=== PATIENT | male | born 1975 | race Caucasian/White ===

== ENCOUNTER 2020-03-12 10:35 | Outpatient (CLI) | payer BC, SELFPAY ==
[2020-03-13 14:19] LABS: SARS-CoV-2 RNA PCR Positive
== END 2020-03-12 10:36 | disposition home or self-care (01) ==
PROVIDERS: PCP Internal Medicine; Visit Provider Internal Medicine
DX: U07.1 COVID-19 (principal)
CPT/HCPCS: 87635; C9803; U0003

== ENCOUNTER 2020-05-01 08:02 | Outpatient (CLI) | payer BC, SELFPAY ==
[2020-05-01 08:14] LABS: Basophils Absolute Auto 0.03 K/mm3 (0.00-0.10); Basophils Percent Auto 0.6 % (0.0-1.0); Eosinophils Percent Auto 1.9 % (1.0-6.0); Hematocrit 44.2 % (40.0-54.0); Hemoglobin 14.8 g/dL (14.0-18.0); Immature Granulocyte Absolute 0.02 K/mm3 (0.00-0.00); Immature Granulocyte Percent A 0.4 % (0.0-0.0); Lymphocytes Absolute Auto 1.79 K/mm3 (1.10-4.50); Lymphocytes Percent Auto 34.6 % (18.0-42.0); Mean Corpuscular HGB Conc 33.5 g/dL (32.0-36.0); Mean Corpuscular Hemoglobin 28.9 pg (27.0-31.0); Mean Corpuscular Volume 86.3 fL (78.0-102.0); Mean Platelet Volume 8.6 fl (8.7-11.0); Monocytes Absolute Auto 0.47 K/mm3 (0.10-0.90); Monocytes Percent Auto 9.1 % (2.0-11.0); Neutrophils Absolute Auto 2.8 K/mm3 (1.7-7.2); Neutrophils Percent Auto 53.4 % (50.0-70.0); Platelet Count Result 233 K/mm3 (150-420); Red Blood Count 5.12 M/mm3 (4.70-6.10); Red Cell Distribution Width 12.4 % (11.6-14.4); White Blood Count 5.2 K/mm3 (4.8-10.8)
[2020-05-01 08:17] LABS: Add Urine Microscopic? NO; Appearance Urine Clear (Clear); Bilirubin Urine Negative (Negative); Blood Urine Negative (Negative); Color Urine Yellow (Yellow); Glucose Urine UA Negative (Negative); Ketones Urine Negative (Negative); Leukocyte Esterase Ur Negative (Negative); Nitrate Urine Negative (Negative); Protein Urine Negative (Negative); Specific Grav Ur >= 1.030 (1.010-1.020); Urobilinogen Urine 0.2 mg/dL (0.2-1.0)
[2020-05-01 09:09] LABS: Alanine Aminotransferase 43 U/L (16-63); Albumin Level 4.2 g/dL (3.4-5.0); Alkaline Phosphatase 49 U/L (46-116); Anion Gap 8 mmol/L (8-16); Aspartate Amino Transferase 38 U/L (15-37); Bilirubin,Total 0.6 mg/dL (0.00-1.00); Blood Urea Nitrogen 20 mg/dL (7-18); Carbon Dioxide 29 mmol/L (21-32); Chloride 106 mmol/L (98-108); Cholesterol 187 mg/dL (0-200); Creatine Kinase 508 U/L (39-308); Estimated Glomerular Filt Rate > 60; Glucose 100 mg/dL (70-99); HDL Direct 55 mg/dL (40-60); LDL Cholesterol Calculated 114 mg/dL (<130); Osmolality Calculated 298 mOsm/kg (285-295); Potassium 4.2 mmol/L (3.5-5.1); Sodium 143 mmol/L (136-145); Triglycerides 92 mg/dL (0-150)
== END 2020-05-01 08:03 | disposition home or self-care (01) ==
LOC: CHSLAB 08:04
PROVIDERS: PCP Internal Medicine; Visit Provider Internal Medicine
DX: Z00.00 Encounter for general adult medical examination without abnormal findings (principal)
CPT/HCPCS: 36415; 80053; 80061; 81003; 82550; 85025

== ENCOUNTER 2020-12-12 07:20 | Outpatient (CLI) | payer BC, SELFPAY ==
[2020-12-12 08:18] LABS: Alanine Aminotransferase 51 U/L (16-63); Albumin Level 4.2 g/dL (3.4-5.0); Alkaline Phosphatase 55 U/L (46-116); Anion Gap 8 mmol/L (8-16); Aspartate Amino Transferase 38 U/L (15-37); Bilirubin,Total 0.4 mg/dL (0.00-1.00); Blood Urea Nitrogen 17 mg/dL (7-18); Carbon Dioxide 31 mmol/L (21-32); Chloride 103 mmol/L (98-108); Creatine Kinase 311 U/L (39-308); Estimated Glomerular Filt Rate > 60; Glucose 98 mg/dL (70-99); Osmolality Calculated 295 mOsm/kg (285-295); Potassium 3.8 mmol/L (3.5-5.1); Sodium 142 mmol/L (136-145); Total Protein 7.3 g/dL (6.4-8.2)
== END 2020-12-12 07:21 | disposition home or self-care (01) ==
LOC: CHSLAB 07:23
PROVIDERS: PCP Internal Medicine; Visit Provider Internal Medicine
DX: R74.8 Abnormal levels of other serum enzymes (principal); R73.01 Impaired fasting glucose
CPT/HCPCS: 36415; 80053; 82550

== ENCOUNTER 2022-02-13 11:42 | Outpatient (CLI) | payer BC, SELFPAY ==
[2022-02-13 12:48] LABS: Influenza A QL RT-PCR Negative (Negative); Influenza B QL RT-PCR Negative (Negative); SARS-CoV-2 RNA PCR Negative (Negative)
== END 2022-02-13 11:43 | disposition home or self-care (01) ==
LOC: CHSLAB 11:45
PROVIDERS: PCP Internal Medicine; Visit Provider Nurse Practitioner Family
DX: J06.9 Acute upper respiratory infection, unspecified (principal); J02.9 Acute pharyngitis, unspecified; Z20.822 Contact with and (suspected) exposure to COVID-19
CPT/HCPCS: 87081; 87502; 87880; C9803; U0003; U0005

== ENCOUNTER 2022-12-07 13:42 | Outpatient (CLI) | payer BC, SELFPAY ==
[2022-12-07 14:00] LABS: Basophils Absolute Auto 0.05 K/mm3 (0.00-0.10); Basophils Percent Auto 0.8 % (0.0-1.0); Eosinophils Absolute Auto 0.14 K/mm3 (0.02-0.50); Eosinophils Percent Auto 2.2 % (1.0-6.0); Hematocrit 42.1 % (40.0-54.0); Hemoglobin 14.1 g/dL (14.0-18.0); Immature Granulocyte Absolute 0.01 K/mm3 (0.00-0.00); Immature Granulocyte Percent A 0.2 % (0.0-0.0); Lymphocytes Absolute Auto 2.04 K/mm3 (1.10-4.50); Lymphocytes Percent Auto 32.5 % (18.0-42.0); Mean Corpuscular HGB Conc 33.5 g/dL (32.0-36.0); Mean Corpuscular Hemoglobin 28.5 pg (27.0-31.0); Mean Corpuscular Volume 85.1 fL (78.0-102.0); Mean Platelet Volume 8.9 fl (8.7-11.0); Neutrophils Absolute Auto 3.5 K/mm3 (1.7-7.2); Neutrophils Percent Auto 56.3 % (50.0-70.0); Platelet Count Result 227 K/mm3 (150-420); Red Blood Count 4.95 M/mm3 (4.70-6.10); Red Cell Distribution Width 12.1 % (11.6-14.4); White Blood Count 6.3 K/mm3 (4.8-10.8)
[2022-12-07 14:01] LABS: Appearance Urine Clear (Clear); Bilirubin Urine Negative (Negative); Blood Urine Negative (Negative); Color Urine Yellow (Yellow); Glucose Urine UA Negative (Negative); Ketones Urine Negative (Negative); Leukocyte Esterase Ur Negative LEU/UL (Negative); Nitrate Urine Negative (Negative); Protein Urine Negative (Negative); Specific Grav Ur 1.025 (1.010-1.020); Urobilinogen Urine 0.2 mg/dL (0.2-1.0); pH Urine 5.5 (5.0-8.0)
[2022-12-07 14:05] LABS: Add Urine Microscopic? NO
[2022-12-07 14:11] LABS: Hemoglobin A1C 5.8 % (<5.7)
[2022-12-07 14:43] LABS: Alanine Aminotransferase 82 U/L (16-63); Albumin Level 4.4 g/dL (3.4-5.0); Alkaline Phosphatase 58 U/L (46-116); Anion Gap 9 mmol/L (8-16); Aspartate Amino Transferase 63 U/L (15-37); Bilirubin,Total 0.7 mg/dL (0.00-1.00); Blood Urea Nitrogen 16 mg/dL (7-18); Calcium 8.8 mg/dL (8.5-10.1); Carbon Dioxide 30 mmol/L (21-32); Chloride 103 mmol/L (98-108); Cholesterol 173 mg/dL (0-200); Creatine Kinase 848 U/L (39-308); Estimated Glomerular Filt Rate 60; Free T3 2.94 pg/mL (2.18-3.98); Free T4 Free Thyroxine 0.98 ng/dL (0.76-1.46); Glucose 85 mg/dL (70-99); HDL Direct 44 mg/dL (40-60); LDL Cholesterol Calculated 101 mg/dL (<130); Osmolality Calculated 294 mOsm/kg (285-295); Potassium 3.7 mmol/L (3.5-5.1); Sodium 142 mmol/L (136-145); Thyroid Stimulating Hormone 1.71 uIU/mL (0.36-3.74); Total Protein 7.6 g/dL (6.4-8.2); Triglycerides 140 mg/dL (0-150)
== END 2022-12-07 13:43 | disposition home or self-care (01) ==
LOC: CHSLAB 13:44
PROVIDERS: PCP Internal Medicine; Visit Provider Internal Medicine
DX: E78.2 Mixed hyperlipidemia (principal); R73.01 Impaired fasting glucose; N39.0 Urinary tract infection, site not specified; I10 Essential (primary) hypertension; R53.83 Other fatigue
CPT/HCPCS: 36415; 80053; 80061; 81003; 82550; 83036; 84439; 84443; 84481; 85025

== ENCOUNTER 2023-05-03 13:55 | Outpatient (CLI) | payer BC, SELFPAY ==
[2023-05-03 14:40] LABS: Anion Gap 8 mmol/L (8-16); Blood Urea Nitrogen 19 mg/dL (7-18); Calcium 9.2 mg/dL (8.5-10.1); Carbon Dioxide 30 mmol/L (21-32); Chloride 103 mmol/L (98-108); Estimated Glomerular Filt Rate > 60; Glucose 84 mg/dL (70-99); Osmolality Calculated 293 mOsm/kg (285-295); Potassium 3.6 mmol/L (3.5-5.1); Sodium 141 mmol/L (136-145)
== END 2023-05-03 13:56 | disposition home or self-care (01) ==
PROVIDERS: PCP Internal Medicine; Visit Provider Internal Medicine
DX: I10 Essential (primary) hypertension (principal)
CPT/HCPCS: 36415; 80048

== ENCOUNTER 2023-08-16 12:00 | Emergency (ER) | payer BC, SELFPAY ==
--- NOTE | ~2023-08-16 | XR_ITS ---
EXAMINATION: XR forearm LT 2V DATE: 08/16/2023 12:29 INDICATION: Left forearm pain and deformity post fall TECHNIQUE: AP an lateral views of the left forearm were obtained. COMPARISON: none FINDINGS: Mildly comminuted mid diaphyseal fracture of the left ulna with 4 mm ulnar displacement and 90 degree radial angulation. There is minimal displacement of a small volar sided butterfly fragment. 4 mm and volar displacement of a transverse fracture of the proximal diaphysis of the left radius. Normal ali gnment and joint space at the left elbow, wrist and visualized hand. No elbow joint effusion. IMPRESSION: 1. Mildly displaced diaphyseal fractures of the left radius and ulna. Reviewed, dictated and finalized at location A. [facility]
[2023-08-16 12:00] VITALS: BP 91/53; PULSE 60; RESP 18; TEMP 35.6; O2SAT 100
--- NOTE | 2023-08-16 12:10 | ED.UPPEXIN ---
HPI - Extremity Injury (Upper) General Chief Complaint: Extremity Injury, Upper Stated Complaint: left arm pain Time Seen by Provider: 08/16/23 12:08 Source: patient Mode of arrival: ambulatory Limitations: no limitations History of Present Illness HPI narrative: 48 year old male arrives to the Emergency Department complaining of left forearm pain. Patient states he slipped on ice just prior to arrival and landed on left arm. Denies striking head, loss of consciousness, head or neck pain. Denies chest, back, abdominal or other pain. MD complaint: injury to: left and forearm Onset (ago): minute(s) Other injuries: none Handedness: right Place: home Severity: moderate Severity scale (1-10): 10 Relieving factors: none Exacerbating factors: movement of extremity Context: fall Associated symptoms: denies other symptoms Treatments prior to arrival: cold therapy Related Data Home Medications Medication Instructions Recorded Confirmed atorvastatin 10 mg tablet 10 mg PO DAILY 08/16/23 08/16/23 citalopram 20 mg tablet 20 mg PO DAILY 08/16/23 08/16/23 fenofibrate micronized 67 mg 67 mg PO DAILY 08/16/23 08/16/23 capsule losartan 100 1 tablet PO DAILY 08/16/23 08/16/23 mg-hydrochlorothiazide 25 mg tablet Allergies Allergy/AdvReac Type Severity Reaction Status Date / Time No Known Allergies Allergy Mild Verified 08/16/23 12:07 Review of Systems Review of Systems: All systems reviewed & are unremarkable except as noted in HPI and below Constitutional: Constitutional: Reports as per HPI and Reports no additional constitutional complaints Eyes: Eyes: Reports as per HPI and Reports no additional eye complaints ENT: Reports system reviewed and no additional complaints, except as documented Cardiovascular: Cardiovascular: Reports as per HPI and Reports no additional cardiovascular complaints Respiratory: Respiratory: Reports as per HPI and Reports no additional respiratory complaints Gastrointestinal: Gastrointestinal: Reports as per HPI and Reports no additional gastrointestinal complaints Musculoskeletal: Musculoskeletal: Reports no additional musculoskeletal complaints Comments: Left forearm pain Neurologic: Reports system reviewed and no additional complaints, except as documented and Denies numbness Psychiatric: Psychiatric: Reports no additional psychiatric complaints Endocrine: Endocrine: Reports no additional endocrine complaints Hematologic/Lymphatic: Hematologic/Lymphatic: Reports no additional hematologic/lymphatic complaints Allergic/Immunologic: Allergic/Immunologic: Reports no additional allergic/immunologic complaints Exam Const: General: healthy appearing; No no acute distress Nutritional Appearance: well nourished Orientation/consciousness: patient oriented x3 Limitations: no limitations Other: mild distress HENMT: Head: normal to inspection Ears: external ears normal Face/Nose/Sinus: Normal external nose present Face and sinus: normal facial exam Mouth: Yes Normal oral and palatal mucosa present Teeth and gingiva: dentition normal Other: Non-tender to palpation Eyes: Conjunctivae: conjunctivae normal Pupils: Equal, round and reactive pupils present EOM: EOMs intact bilaterally Direct Ophthalmoscopy: no photophobia Neck: Neck: normal visual inspection Other: Non-tender to palpation Chest: Chest palpation & inspection: normal inspection of the chest and no tenderness Resp: Effort & Inspection: normal respiratory effort and not labored Cardio: Rate: regular rate Rhythm: regular rhythm Other: Peripheral pulses intact GI: Inspection: non-distended GI Palp: Yes Soft to palpation and No Tenderness to palpation present (GI) Back/Spine/Pelvis: Back: no CVA tenderness Skin: General skin exam: normal color Rashes: no rashes Wounds: no wounds Neuro: General: patient oriented x3 Cranial nerves: Yes Nystagmus not present Speech: normal speech O
[2023-08-16] MEDS: HYDROmorphone HCL INJ (*CRX) 2 MG/ML VIAL IM (12:20)
[2023-08-16 13:25] VITALS: BP 114/76; PULSE 54; RESP 18; O2SAT 99
== END 2023-08-16 13:25 | disposition home or self-care (01) ==
PROVIDERS: Emergency Provider Emergency Medicine; PCP Internal Medicine
DX: S52.92XA Unspecified fracture of left forearm, initial encounter for closed fracture (principal); S59.002A Unspecified physeal fracture of lower end of ulna, left arm, initial encounter for closed fracture; Z79.899 Other long term (current) drug therapy; W00.0XXA Fall on same level due to ice and snow, initial encounter
CPT/HCPCS: 29105; 73090; 96372; 99284; A4565; J1170

== ENCOUNTER 2023-10-18 11:00 | Outpatient (RCR) | payer BC, SELFPAY ==
--- NOTE | 2023-10-19 08:34 | BUOTOPEVAL ---
Assessment and note entered by Sana Quezada OT Evaluation Information Assessment Status Evaluation Diagnosis Closed fracture of left radius and ulna, initial encounter Onset 08/16/23 Subjective Information The patient reports no pain at rest at the beginning of therapy session. He stated that he has a follow up with early October. The patient only has pain at ulnar side of wrist reported at worst as 3/10 as quick sharp pain that goes away quickly. Then pain in L shoulder at 6/10 on posterior and top of shoulder when moving arm for daily tasks. The numbness in L forearm is reported as moderate and he stated that it, feels weird. Reported Pain Level Pain Score 0: Self Report Assessment OT Clinical Summary The patient is a 48 year old male who was referred to outpatient OT due to closed fracture of left radius and ulna with open reducation internal fixation to left ulna fracture and proximal radius malunion. The patient previously demonstrated WNL AROM, bleach chlorinator/pinch strength, no pain and no edema of L UE, the patient now demonstrates moderately impaired AROM of L wrist and elbow, significant bleach chlorinator weakness with R UE demonstrating 99 lbs of strength and L UE demonstrating 13 lbs, minimal edema of L hand and forearm and pain during daily tasks making ADLs and work tasks difficult for patient at this time. The patient scored 59 on QuickDASH questionnaire at the time of evaluation demonstrating moderate impairment of function of L UE. The patient requires skilled OT to address AROM, edema management and scar management at this time with progression to strength and mobility of UE at later date. Plan of Care Interventions Therapeutic Exercise,Manual Therapy,Neuro Re- education,Therapeutic Activities,Hot Pack/Cold Pack,Electrical Stimulation,Self-Care/Home Management,Prosthetic Training,Ultrasound OT Services Indicated Yes Treatment Frequency and 2x/week for 10 visits. Duration These treatments will address the objective and functional deficits as defined above. The patient will be advanced safely and appropriately in order for the patient to progress towards his/her prior level of function. Additional exercises will be introduced and as well as a comprehensive home exercise program upon discharge, if needed, ?to ensure carryover of functional gains achieved in the clinic. This treatment plan has been reviewed and agreement upon by the patient.
--- NOTE | 2023-11-19 14:15 | OPREHPOC ---
Outpatient Therapy Plan of Care This is a Multidisciplinary Plan of Care that may contain components documented by all disciplines (PT, OT, and ST.) OT Problem 1 OT Problem #1 Knowledge Deficit OT Goal 1 Goal The patient will demonstrate 100% knowledge and understanding of UE HEP in order to improve function. Target Visit 10 Progress Met OT Problem 2 OT Problem #2 Edema OT Goal 1 Goal The patient will demonstrate decreased edema and softening of scar tissue by demonstrating L UE middle digit proximal phalanx at 7 cm, DPC at 19 cm and elbow (4 inches distal to olecranon process ) at 30.5 cm in order to improve ROM for function of arm during ADLs. Target Visit 20 Progress Partially Met Comment PROGRESSING; CONTINUE L UE: Middle digit proximal phalanx: 7.5 cm DPC: 19 4 inch distal elbow: 29 cm R UE: Middle digit proximal phalanx: 7 cm DPC: 18 4 inches distal to elbow: 30.5 cm OT Problem 3 OT Problem #3 Pain OT Goal 1 Goal The patient will demonstrate decreased pain in L UE by reporting 0/10 pain in L wrist during AROM for ability to perform work tasks without discomfort. Target Visit 20 Progress Partially Met Comment Progressing; Reports 2/10 pain with AROM; CONTINUE OT Problem 4 OT Problem #4 Impaired Range of Motion OT Goal 1 Goal The patient will demonstrate 0 degrees L elbow extension, >40 degrees L wrist flexion, >50 degrees L wrist extension in order to increase function of L UE needed to perform grooming tasks. Target Visit 20 Progress Partially Met Comment PROGRESSING; CONTINUE L elbow flexion: 135 L elbow extension: 0 L wrist flexion: 38
--- NOTE | 2023-11-19 14:15 | OTOPREEVAL ---
Assessment and note entered by Estela Li, OT Evaluation Information Assessment Status Re-evaluation Diagnosis Closed fracture of left radius and ulna, initial encounter Onset 08/16/23 Subjective Information Client reports increased participation in leisure activities and has less difficulty performing self care and home management tasks. He stated, I went to [employer] with my friends and even though I didn't play, I swung a club and it did not hurt at all. . Client did state he wants to work more on his stroke coordinator strength in future sessions Reported Pain Level Pain Score 0: Self Report Assessment OT Clinical Summary Client pleasant throughout OT session and reported no pain prior to treatment. Client does report 2/ 10 pain in left wrist with AROM and stretching, but reports pain subsides quickly after. Client demonstrated good tolerance with therapeutic treatment completed this date and was able to increase reps with no adverse reactions. He demonstrated understanding of HEP requiring no cues or assistance this date. Client has made great improvement since attending skilled OT with his active left elbow extension increasing from 15 degrees of flexion to 0 degrees. His left wrist also made improvement towards ROM goals with client increasing wrist flexion from 26 degrees to 38 degrees and wrist extension from 32 degrees to 40 degrees. Less edema measured around DPC decreasing from 20 cm to 19 cm, and distal elbow from 31 cm to 29 cm. No change in edema measurement around middle proximal phalanx remaining at 7.5 cm. Client's percentage on the Quick Dash Questionnaire improved from 59% disability to 13.6% indicating increased participation in meaningful and daily tasks. Additional progress shown in left hand strength with client's left stroke coordinator strength improving from 13 lbs. to 35 lbs. and lateral pinch strength improving from .5 lbs. to 6 lbs.. Client has verbalized less difficulty with performing ADLs and IADLs, but would continue to benefit from skilled occupational therapy services to address AROM, strength, and pain. Plan of Care Interventions Therapeutic Exercise,Manual Therapy,Neuro Re- education,Therapeutic Activities,Hot Pack/Cold Pack,Self-Care/Home Management OT Services Indicated Y
--- NOTE | 2023-12-24 12:13 | OTOPDC ---
Assessment and note entered by Sana Quezada, OT Evaluation Information Assessment Status Discharge Reported Pain Level Pain Score 0: Self Report Assessment OT Clinical Summary The patient demonstrates significant progress in L UE strength, wrist ROM, art handler strength, pinch strength, and pain symptoms affecting an increase in independence with ADLs and work tasks. He demonstrates no pain at the time of discharged and 100% knowledge and return demonstration for UE HEP. The patient demonstrates increased function with L UE scoring 59% on QuickDash at SOC and 15% at discharge. The patient is discharged with HEP to continue to address art handler and UE strength and maintain progress from skilled OT. Plan of Care OT Services Indicated No
== END 2023-12-24 13:07 | disposition home or self-care (01) ==
LOC: CHSOT 11:00
DX: S52.92XD Unspecified fracture of left forearm, subsequent encounter for closed fracture with routine healing (principal); S52.202D Unspecified fracture of shaft of left ulna, subsequent encounter for closed fracture with routine healing
CPT/HCPCS: 97110; 97140; 97166; 97530

== ENCOUNTER 2024-09-15 07:29 | Outpatient (CLI) | payer BC, SELFPAY ==
--- NOTE | ~2024-09-15 | US_ITS ---
US right upper quadrant INDICATION: Elevated liver enzymes PROCEDURE: Realtime right upper abdominal ultrasound. COMPARISON: No prior studies for comparison. FINDINGS: The pancreas is normal without focal mass or pancreatic ductal dilation. Liver echotexture is increased, consistent with fatty infiltration. There is normal directional flow in the portal ve in. Gallbladder is contracted limiting evaluation for stones. Common bile duct measures 3 mm. No sonogr aphic Esparza's sign. IMPRESSION: 1: Fatty infiltration of the liver. Reviewed, dictated and finalized at location B. [facility]
--- OUTSIDE RECORDS SUMMARY | 2024-09-15 07:35 | XMS_ITS | Clinical Summary ---
Author Organization [address] Address [address] [place] [id number] Care Team Providers Care Willow Worker Name Role Phone Joellen Membreno MD Primary Care Provider + [phone] Allergies No known active allergies Medications ibuprofen (ibuprofen) 200 mg tab/cap take 1 tablet by oral route every 6 hours as needed with food 0 0 10/12/19 15 Active Additional Information Patient taking differently:200 mgoral Every 6 hours PRN, pain, headaches, fever, Informant: Self, Reported on 09/21/2023 citalopram (CeleXA) 20 mg tablet Take 1 tablet (20 mg total) by mouth daily. 30 tablet 4 06/04/20 17 Active Additional Information Patient taking differently:20 mg oralEvery morning, Indications: Anxiety with Depression, Informant: Self, Reported on 09/21/2023 atorvastatin (LIPITOR) 10 mg tabletIndications:hy perlipidemia Take 1 tablet (10 mg total) by mouth nightly Active fenofibrate micronized (LOFIBRA) 67 mg capsuleIndications:h ypercholesterolemia, hyperlipidemia Take 1 capsule (67 mg total) by mouth daily before breakfast Active lansoprazole (PREVACID) 15 mg capsuleIndications:T reatment of Non-Bleeding Gastric Disorder Take 1 capsule (15 mg total) by mouth human service specialist before breakfast Active losartan-hydrochloro thiazide (HYZAAR) 100-25 mg per tabletIndications:hy pertension Take 1 tablet by mouth human service specialist before breakfast 08/05/19 24 Active coenzyme Q10 200 mg capsule Take 1 tablet by mouth human service specialist before breakfast Active HYDROcodone-acetamin ophen (NORCO) 5-325 mg per tabletIndications:Pa in Take 1 tablet by mouth every 6 (six) hours as needed for pain for up to 20 doses 20 tablet 09/27/19 24 Active fenofibrate nanocrystallized (TRICOR) 145 mg tablet 12/01/19 24 Active omeprazole (PriLOSEC) 20 mg capsule 12/01/19 24 Active potassium chloride ER 20 mEq CR tablet 12/01/19 24 Active buPROPion XL (WELLBUTRIN XL) 150 mg 24 hr tablet 02/11/20 24 Active Active Problems Problem Noted Date Diagnosed Date Essential hypertension 01/04/2024 Exposure to potentially hazardous substance 12/24 Gastroesophageal reflux disease 01/04/2024 Generalized anxiety disorder 01/04/2024 Hyperlipidemia 01/04/2024 Nicotine dependence 01/04/2024 Sleep apnea 01/04/2024 Fracture of radial shaft wit h ulna, closed, left, initial encounter 09/21/2023 Blood in stool 12/28/2017 Assessment & Plan (12/28/2017 3:13 PM CDT): 8 yrs of intermittent BRBPR asoc with anal pain and itching but no prolapse or swelling. Clinically sounds like roids but sine 42yo and almost due for screening colonoscopy prooposed colonoscopy and IRC if roids are found. He agrees. Anxiety 06/04/2017 Overview (06/04/2017): Patient states he taking this medication for anxiety and it has been working . Patient denies any problems or side affects form this medication. He is currently taking it as prescribed. Patient will continue taking meds as ordered and follow with with new PCP or our office sooner if needed Mass of hand 07/06/2016 Surgical History Surgery Date Site/Laterality Comments HERNIA REPAIR x4 last >10 years ago CYST REMOVAL 07/26/2017 - 07/25/2018 Right right hand FEMUR FRACTURE SURGERY 07/26/1976 - 07/25/1977 Left FRACTURE SURGERY 07/26/2023 - 08/25/2023 Ulna Medical History Medical History Date Comments Gastroesophageal reflux disease Acid Reflux Depression Family History Medical History Relation Name Comments Diabetes Father Anesthesia problems Neg Hx Relation Name Status Comments Father Social History Tobacco Use Types Packs/Day Years Used Date Smoking Tobacco: Former Cigarettes 1 14 0 12/1997 - 12/2011 Smokeless Tobacco: Never Tobacco Cessation:Counseling Given: Not Answered Alcohol Use Standard Drinks/Week Comments Yes 0 (1 standard drink = 0.6 oz pur e alcohol) AUDIT-C Answer Date Recorded Q1: How often do you have a drink containing alc ohol? 2-3 times a week 09/27/2023 Q2: How many drinks containi ng alcohol do you have on a typical day when you are drinking? 1 or 2 09/27/2023 Q3: How often do you have si x or more drinks on one occasion? Never 09/27/2023 Personal Safety Answer Date Recorded Have you ever been in or are you currently in a harmful physical or emotional relationship or is someone making you feel afraid or unsafe? Patient unable to answer 09/27/2023 Sex and Gender Information Value Date Recorded Sex Assigned at Not on file Legal Sex Male 12:50 AM [employer] Gender Identity Not on file Sexual Orientation Not on file Obstetrics History Last Filed Vital Signs Vital Sign Reading Time Taken Comments Blood Pressure 109/66 09/27/2023 4:20 PM [employer] Pulse 57 09/27/2023 4:20 PM [employer] Temperature 36.5 C (97.7 F) 09/27/2023 3:50 PM [employer] Respiratory Rate 17 09/27/2023 4:20 PM [employer] Oxygen Saturation 99% 09/27/2023 4:20 PM [employer] Inhaled Oxygen Concentration - - Weight 108.9 kg (240 lb) 09/21/2023 11:00 AM [employer] Height 177.8 cm (5' 10 ) 09/21/2023 11:00 AM [employer] Body Mass Index 34.44 09/21/2023 11:00 AM [employer] Plan of Treatment Health Maintenance Due Date Last Done Comments Hepatitis C Screening 1975 Prostate Cancer Screening-PSA 1975 Hepatitis B Screening 1991 Regular Well Visit/Exam 18-64 1991 Depression Screening 06/04/2018 06/04/2017 Covid-19 Vaccine ( season) 2024 06/04/2021, 05/13/2021 Influenza Vaccine (#1) 2024 8, 07/09/2007, 07/31/2006, Additional history exists Colon Cancer Screening-Colonoscopy 02/11/2028 02/10/2018, 02/10/2018 DTaP/Tdap/Td Vaccine (2 - Td or Tdap) 01/31/2030 02/01/2020, 04/05/2005, 10/11/1992 Zoster Vaccine Completed 10/29/2023, 05/18/2023 Pneumococcal vaccine <65 Aged Out No longer eligible based on patient's age to complete this topic Medical Devices Implanted Type Area Secretary Specialist Device Identifier Shelf Expiration Date Model / Serial / Lot Synthes Implant Bone Plate Compression Locking 16 Hole Lcp [id number] [id number] - [id number] Implanted:Qty: 1 on 09/27/2023 by Kemal Hill MD at [facility] Plate Radius Synthes I 2031 [id number] 0 S / / [id number] Radius Left: Arm Synthes Lcp 36mm 4 Hole Low Profile Cut To Length Plate Bone Stainless 249.674 - [id number] Implanted:Qty: 1 on 09/27/2023 by Kemal Hill MD at [facility] Left: Arm Synthes I 249.674 / / Synthes 2.4mm 14mm Self Tap Stardrive Cortex T8 Screw Bone 201.764 - [id number] Implanted:Qty: 1 on 09/27/2023 by Kemal Hill MD at [facility] Left: Arm Synthes I 201.764 / / Synthes 2.4mm 16mm Self Tap Stardrive Cortex T8 Screw Bone 201.766 - [id number] Implanted:Qty: 1 on 09/27/2023 by Kemal Hill MD at [facility] Left: Arm Synthes I 201.766 / / Synthes Lcp 67mm 7 Hole Low Profile Cut To Length Plate Bone Stainless 249.683 - [id number] Implanted:Qty: 1 on 09/27/2023 by Kemal Hill MD at [facility] Left: Arm Synthes I 249.683 / / Synthes 2.7mm 5mm 16mm 2.5mm Self Tap St[employer]rive Cortical T8 Screw Bone 202.876 - [id number] Implanted:Qty: 6 on 09/27/2023 by Kemal Hill MD at [facility] Left: Arm Synthes I 202.876 / / Synthes 2.7mm 5mm 20mm 2.5mm Self Tap St[employer]rive Cortical T8 Screw Bone 202.880 - [id number] Implanted:Qty: 2 on 09/27/2023 by Kemal Hill MD at [facility] Left: Arm Synthes I 202.880 / / Synthes 2.7mm 2.1mm 10mm Self Tap Lock Stardrive Thread Head Profile T8 .210 - [id number] Implanted:Qty: 2 on 09/27/2023 by Kemal Hill MD at [facility] Left: Arm Synthes I 202.210 / / Synthes 2.7mm 5mm 18mm 2.5mm Self Tap St[employer]rive Cortical T8 Screw Bone .878 - [id number] Implanted:Qty: 2 on 09/27/2023 by Kemal Hill MD at [facility] Left: Arm Synthes I 202.878 / / Procedures Procedure Name Priority Date/Time Associated Diagnosis Comments COLONOSCOPY 02/10/2018 8:08 AM CDT from Last 3 Months or Most Recently Relevant to Health Maintenance Results * COLONOSCOPY (02/10/2018 8:08 AM CDT) Anatomical Region Laterality Modality Other Narrative Procedure Note Chaz Wong MD - 02/10/2018 8:08 AM CDT [facility] Patient Name: Helder Lawrence Procedure Date: 02/10/2018 8:08 AM Date of : 1975 Admit Type: Outpatient Age: 42 Gender: Male Attending MD: Chaz Wong M.D. Room: [facility] ROOM 1 Note Status: Finalized Procedure: Colonoscopy Indications: Screening for colorectal malignant neoplasm, This is the patient's first colonoscopy Referring MD: Providers: Chaz Wong M.D. Impression: - Internal hemorrhoids that prolapse with straining, but spontaneously regress to the resting position (Grade II) found on digital rectal exam. - The entire examined colon is normal. - No specimens collected. Recommendation: - Discharge patient to home. - Resume previous diet. - Continue present medications. - Repeat colonoscopy in 10 years for screeningpurposes. - Return to primary care physician as previously scheduled. Medicines: Propofol per Anesthesia Complications: No immediate complications. Estimated Blood Loss: Estimated blood loss: none. Procedure: The benefits, risks and alternatives of theprocedure and sedation were discussed and informed consent was obtained. All questions were answered. Please referto the signed informed consent document in the medical record. The scope was passed under direct vision.The Colonoscope [id number] was introducedthrough the anus and advanced to the the cecum, identifiedby appendiceal orifice and ileocecal valve. The colonoscopy was performed without difficulty. The patient tolerated the procedure well. The quality of the bowel preparation was excellent. Findings: The digital rectal exam findings include internal hemorrhoids that prolapse with straining, but spontaneously regress to the resting position (Grade II). The colon (entire examined portion) appeared normal. Electronically signed by Chaz Wong M.D. Chaz Wong M.D. 02/10/2018 8:40:09 AM Number of Addenda: 0 Note Initiated On: 02/10/2018 8:08 AM Procedure Code(s): --- Professional --- G0121, Colorectal cancer screening; colonoscopy on individual not meeting criteria for high risk Diagnosis Code(s): --- Professional --- K64.1, Second degree hemorrhoids Z12.11, Encounter for screening for malignant neoplasm of colon CPT copyright 2017 [employer]. All rights reserved. The codes documented in this report are preliminary and upon pocket machine operator reviewmay be revised to meet current compliance requirements. Recognized by the [employer] [employer] for promoting quality in endoscopy Chaz Wong MD ENDOSCOPY PROCEDURES Final Re sult from Last 3 Months or Most Recently Relevant to Health Maintenance Insurance [facility] FEDERAL Advance Directives For more information, please contact: [phone] * Full Code (Latest Code Status on File) Date Activated Date Inactivated Comments 02/10/2018 7:23 AM 02/10/2018 11:37 AM Care Teams Willow Worker Relationship Specialty Start Date End Date Joellen Membreno MD [address] [place] [address] PCP - General Internal Medicine 12/02/17
--- OUTSIDE RECORDS SUMMARY | 2024-09-15 07:35 | XMS_ITS | Referral Summary ---
Author Organization [address] Address [address] [place] [phone] Care Team Providers Care Short Goods Drier Name Role Phone Joellen Membreno MD Primary Care Provider + [phone] Allergies No known active allergies Medications ibuprofen [...] 1 capsule (15 mg total) by mouth general car supervisor yard before breakfast Active losartan-hydrochloro thiazide (HYZAAR) 100-25 mg per tabletIndications:hy pertension Take 1 tablet by mouth general car supervisor yard before breakfast 08/05/19 24 Active coenzyme Q10 200 mg capsule Take 1 tablet by mouth general car supervisor yard before breakfast Active HYDROcodone-acetamin ophen (NORCO) 5-325 [...] sooner if needed Mass of hand 07/06/2016 Social History Tobacco Use Types Packs/Day Years [...] on file Legal 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 Gender Identity Not on file Sexual Orientation Not on file Last Filed Vital Signs Vital Sign Reading Time Taken Comments Blood Pressure 109/66 09/27/2023 4:20 PM JUNIOR PROGRAMMER Pulse 57 09/27/2023 4:20 PM JUNIOR PROGRAMMER Temperature 36.5 C (97.7 F) 09/27/2023 3:50 PM JUNIOR PROGRAMMER Respiratory Rate 17 09/27/2023 4:20 PM JUNIOR PROGRAMMER Oxygen Saturation 99% 09/27/2023 4:20 PM JUNIOR PROGRAMMER Inhaled Oxygen Concentration - - Weight 108.9 kg (240 lb) 09/21/2023 11:00 AM JUNIOR PROGRAMMER Height 177.8 cm (5' 10 ) 09/21/2023 11:00 AM JUNIOR PROGRAMMER Body Mass Index 34.44 09/21/2023 11:00 AM JUNIOR PROGRAMMER Plan of Treatment Not on file Medical Devices Implanted Type Area Tape Machine Tailer Device Identifier Shelf Expiration Date Model / Serial / Lot Synthes Implant Bone Plate Compression Locking 16 Hole Lcp [id number] 02.247.380s - [id number] Implanted:Qty: 1 on 09/27/2023 by Kemal Hill MD at [facility] Plate Radius Synthes I 2031 02.247.38 0 S / / [id number] Radius Left: Arm Synthes Lcp 36mm 4 Hole Low Profile Cut To Length Plate Bone Stainless 249.674 - [id number] Implanted:Qty: 1 on 09/27/2023 by Kemal Hill MD at [facility] Left: Arm Synthes I 249.674 / / Synthes 2.4mm 14mm Self Tap Stardrive Cortex T8 Screw Bone 201.764 - [id number] Implanted:Qty: 1 on 09/27/2023 by Kemal Hill MD at [facility] Left: Arm Synthes I 201.764 / / Synthes 2.4mm 16mm Self Tap Stardrive Cortex T8 Screw Bone 201.766 - [id number] Implanted:Qty: 1 on 09/27/2023 by Kemal Hill MD at [facility] Left: Arm Synthes I 201.766 / / Synthes Lcp 67mm 7 Hole Low Profile Cut To Length Plate Bone Stainless 249.683 - [id number] Implanted:Qty: 1 on 09/27/2023 by Kemal Hill MD at [facility] Left: Arm Synthes I 249.683 / / Synthes 2.7mm 5mm 16mm 2.5mm Self Tap Stardrive Cortical T8 Screw Bone 202.876 - [id number] Implanted:Qty: 6 on 09/27/2023 by Kemal Hill MD at [facility] Left: Arm Synthes I 202.876 / / Synthes 2.7mm 5mm 20mm 2.5mm Self Tap Stardrive Cortical T8 Screw Bone 202.880 - [id number] Implanted:Qty: 2 on 09/27/2023 by Kemal Hill MD at [facility] Left: Arm Synthes I 202.880 / / Synthes 2.7mm 2.1mm 10mm Self Tap Lock Stardrive Thread Head Profile T8 202.210 - [id number] Implanted:Qty: 2 on 09/27/2023 by Kemal Hill MD at [facility] Left: Arm Synthes I 202.210 / / Synthes 2.7mm 5mm 18mm 2.5mm Self Tap Stardrive Cortical T8 Screw Bone 202.878 - [id number] Implanted:Qty: 2 on 09/27/2023 by Kemal Hill MD at [facility] Left: Arm Synthes I 202.878 / / Procedures Procedure Name Priority Date/Time Associated Diagnosis Comments COLONOSCOPY 02/10/2018 8:08 AM CDT from Last 3 Months or Most Recently Relevant to Health Maintenance Results * COLONOSCOPY (02/10/2018 8:08 AM CDT) Anatomical Region Laterality Modality Other Narrative Procedure Note Chaz Wong MD - 02/10/2018 8:08 AM CDT [facility] Patient Name: Helder Lawrence Procedure Date: 02/10/2018 8:08 AM Date of : 1975 Admit Type: Outpatient Age: 42 Gender: Male Attending MD: Chaz Wong M.D. Room: [facility] ENDOSCOPY ROOM 1 Note Status: Finalized Procedure: [...] scope was passed under direct vision.The Colonoscope [id number] was introducedthrough the anus and advanced to [...] malignant neoplasm of colon CPT copyright 2017 [employer]. All rights reserved. The codes documented in this report are preliminary and upon audit officer reviewmay be revised to meet current compliance requirements. Recognized by the [employer] for promoting quality in endoscopy Chaz Wong MD ENDOSCOPY PROCEDURES Final Re sult from Last 3 Months or Most Recently Relevant to Health Maintenance Insurance [facility] Advance Directives For more information, please contact: [phone] * Full Code (Latest Code Status on File) Date Activated Date Inactivated Comments 02/10/2018 7:23 AM 02/10/2018 11:37 AM Care Teams Short Goods Drier Relationship Specialty Start Date End Date Joellen Membreno MD [address] [place] [address] PCP - General Internal Medicine 12/02/17
--- OUTSIDE RECORDS SUMMARY | 2024-09-15 07:35 | XMS_ITS | Continuity of Care Document ---
Author Name [facility] Organization [facility] Care Team Providers Care Environmental Services Director Name Role Phone [facility] Unavailable Unavailable Problems Combined list of problems from [facility] and [facility] facilities. It does not include entries that were removed or entered in error. Problem Status Onset Date Problem Type Date of Resolution Comments Source congenital anomalies of skin Active Condition [facility] Patient Education Active Condition [facility] nicotine dependence Active Condition Do D visit for: services physical Active Condition [facility] Administrative Evaluation Services Active Condition [facility] Essential hypertension Active Condition [facility] Exposure to potentially hazardous substance Active Condition [facility] Gastroesophageal reflux disease Active Condition [facility] Generalized anxiety disorder Active Condition [facility] Hyperlipidemia Active Condition [facility] Sleep apnea Active Condition [facility] Diagnosis: ICD-10-CM G47.33 Obstructive sleep apnea (adult) (pediatric) Active Diagnosis [facility] Diagnosis: ICD-10-CM M25.561 Pain in right knee Active Diagnosis [facility] Diagnosis: ICD-10-CM Z00.00 Encntr for general adult medical exam w/o abnormal findings Active Diagnosis [facility] Medications Combined list of outpatient medications from [facility] facilities.Medications provided include 1) outpatient medications from the last 15 months, and 2) patient-reported medications. Medication Details Route Status Patient Instructions Prescription Expires Prescription Number Last Dispense Date Ordering Provider Order Date Order Qty Source ATORVASTATI N CA 20MG TAB TAKE ONE-HALF TABLET BY MOUTH EVERY EVENING FOR HIGH CHOLESTE ROL ORAL ACTIVE 12/01/2024 [id number] DEPAULO,S UZANNE 2023 45 [facility] CITALOPRAM HYDROBROMID E 40MG TAB TAKE ONE-HALF TABLET BY MOUTH EVERY MORNING FOR ANXIETY ORAL ACTIVE 12/01/2024 [id number] DEPAULO,S UZAE 2023 45 [facility] FENOFIBRATE 145MG TAB TAKE ONE-HALF TABLET BY MOUTH ONCE A DAY FOR HIGH TRIGLYCE RIDES - TAKE WITH FOOD ORAL ACTIVE 12/01/2024 [id number] [facility] UZAE 2023 45 [facility] HYDROCHLORO THIAZIDE 25MG/LOSART AN POTASSIUM 100MG TAB TAKE 1 TABLET BY MOUTH EVERY MORNING FOR HIGH BLOOD PRESSURE ORAL ACTIVE 12/01/2024 [id number] [facility] 2023 90 [facility] OMEPRAZOLE 20MG CAP,EC TAKE ONE CAPSULE BY MOUTH EVERY MORNING BEFORE A MEAL FOR GASTROES OPHAGEAL REFLUX DISEASE TAKE 30 MINUTES PRIOR TO FOOD. ORAL ACTIVE 12/01/2024 [id number] [facility] 2023 90 [facility] POTASSIUM CHLORIDE 20MEQ TAB,SA (DISPERSIBL E) TAKE ONE TABLET BY MOUTH ONCE A DAY FOR POTASSIU M SUPPLEME NTATION TAKE WITH FOOD ORAL ACTIVE 12/01/2024 [id number] 5 [facility] 2023 90 [facility] Allergies, Adverse Reactions, Alerts Combined list of allergies from Department of Defense and Veterans Affairs facilities. It does not include entries that were removed or entered in error. Substance Category Reaction Severity Reaction type Status Date Reported Comments Source No Known Allergies Drug allergy (disorder) active 03/13/2009 [facility] Sravan [facility] ([facility] Immunizations Combined list of available immunizations from the Department of Defense and Veterans Affairs facilities. Immunization Series Date Given Administered By Site Reaction Lot Number CVX Code Drug Gas Usage Meter Clerk Status Comments Source ZOSTER RECOMBINANT 2 2023 187 complet ed [facility] ZOSTER RECOMBINANT 1 2022 187 complet ed [facility] COVID-19 (PFIZER), MRNA, LNP-S, PF, 30 MCG/0.3 ML DOSE 2 2020 208 complet [facility] COVID-19 (PFIZER), MRNA, LNP-S, PF, 30 MCG/0.3 ML DOSE 1 2020 208 complet [facility] TDAP [address] [facility] influenza virus vaccine, live, attenuated, for intranasal use 1 2007 Unknown, Provider [id number] [employer] (MED) complet influenza virus vaccine, live, attenuate d, for intranasa l use DoD influenza virus vaccine, live, attenuated, for intranasal use 0 2006 111 [employer] (MED) complet ed influenza virus vaccine, live, attenuate d, for intranasa l use DoD anthrax vaccine 1 2006 24 [facility] [employer] [facility] ([facility]) complet ed anthrax vaccine DoD vaccinia (smallpox) vaccine 1 2006 [id number] Tammie (RAIN) complet ed vaccinia (smallpox ) vaccine DoD influenza virus vaccine, split virus (incl. purified surface antigen)-reti red CODE 0 2006 UNK 15 Unknown (UNK) comple t ed influenza virus vaccine, split virus (incl. purified surface antigen)- retired CODE DoD influenza virus vaccine, split virus (incl. purified surface antigen)-reti red CODE 0 2004 UNK 15 Sanofi Pasteur (PMC) complet ed influenza virus vaccine, split virus (incl. purified surface antigen)- retired CODE DoD yellow fever vaccine 0 2004 UNK 37 Sanofi Pasteur (PMC) complet ed yellow fever vaccine DoD hepatitis A vaccine, adult dosage 0 2004 UNK 52 Unknown (UNK) comple t ed hepatitis A vaccine, adult dosage DoD tetanus toxoid, adsorbed 0 2004 UNK 35 Rena (BAY) complet ed tetanus toxoid, adsorbed DoD typhoid Vi capsular polysaccharid e vaccine 3 2004 UNK 101 Sanofi Pasteur (PMC) complet ed typhoid Vi capsular polysacch aride vaccine DoD hepatitis A vaccine, adult dosage 1 2004 UNK 52 Merck (MSD) complet ed hepatitis A vaccine, adult dosage DoD influenza virus vaccine, split virus (incl. purified surface antigen)-reti red CODE 1 2000 UNK 15 [employer] (PWJ) complet ed influenza virus vaccine, split virus (incl. purified surface antigen)- retired CODE DoD influenza virus vaccine, whole virus 0 2000 [id number] Sanofi Pasteur (PMC) complet ed influenza virus vaccine, whole virus DoD typhoid Vi capsular polysaccharid e vaccine 0 1998 UNK 101 Sanofi Pasteur (PMC) complet ed typhoid Vi capsular polysacch aride vaccine DoD tetanus and diphtheria toxoids, adsorbed, preservative free, for adult use (2 Lf of tetanus toxoid and 2 Lf of diphtheria toxoid) 1 1992 UNK 09 Sanofi Pasteur (PMC) complet ed tetanus and diphtheri a toxoids, adsorbed, preservat jania free, for adult use (2 Lf of tetanus toxoid and 2 Lf of diphtheri a toxoid) DoD yellow fever vaccine 1 1992 UNK 37 Con[employer]ught (CON) complet ed yellow fever vaccine DoD measles, mumps and rubella virus vaccine 1 1991 UNK 03 Merck (MSD) complet ed measles, mumps and rubella virus vaccine DoD poliovirus vaccine, inactivated 1 1991 UNK 10 Sanofi Pasteur (PMC) complet ed polioviru s vaccine, inactivat ed DoD Vital Signs Combined list of inpatient and outpatient Vital Signs from Department of Defense and Veterans Affairs, ranging from 12 months to all on record, depending upon the facility. Vital Sign Value Date Comments Source SYSTOLIC BLOOD PRESSURE 134 06/21/2024 10:24:44 [facility] DIASTOLIC BLOOD PRESSURE 84 06/21/2024 10:24:44 [facility] PULSE OXIMETRY 98 06/21/2024 10:24:44 [facility] WEIGHT 251.8 06/21/2024 10:24:44 [facility] BMI 36 kg/m2 06/21/2024 10:24:44 [facility] PAIN 5 06/21/2024 10:24:44 [facility] HEIGHT 70 06/21/2024 10:24:44 [facility] TEMPERATURE 98 06/21/2024 10:24:44 [facility] PULSE 55 06/21/2024 10:24:[facility] RESPIRATION 18 06/21/2024 10:24:[facility] SYSTOLIC BLOOD PRESSURE 151 12/01/2023 08:40:12 [facility] DIASTOLIC BLOOD PRESSURE 92 12/01/2023 08:40:12 [facility] PULSE OXIMETRY 96 12/01/2023 08:40:12 [facility] WEIGHT 253 12/01/2023 08:40:[facility] BMI 36 kg/m2 12/01/2023 08:40:12 [facility] PAIN 0 12/01/2023 08:40:[facility] HEIGHT 70 12/01/2023 08:40:[facility] TEMPERATURE 98 12/01/2023 08:40:12 [facility] PULSE 55 12/01/2023 08:40:12 [facility] RESPIRATION 18 12/01/2023 08:40:12 [facility] Encounters Combined list of: 1) Encounters from Department of Veterans Affairs facilities going backup to the last 18 months, not all VA inpatient encounters are included; 2) Encounters from the Department of Defense facilities going backup to 280 months. Location Location Details Encounter Type Encounter Number Reason For Visit Attending Provider ADM Date DC Date Status Disposition Source [facility] OUTPATIENT [id number] (L) side inguina l hernia needs evaluat ion for appropr iate disposi MARILIN Maurice 10/18 Released w/o Limitations [facility](NMP S) [facility] Sravan [facility] ([facility]) OUTPATIENT [id number] [facility] 10/23 Released w/o Limitations [facility] Sravan [facility] ([facility]) [address] [place] [address] Group Sravan [facility] ([facility]Fam yadira Med Tm B Non-AD BCC) OUTPATIENT [id number] tobacco cessati on in-take WILLIE WADSWORTH 11/08 Released w/o Limitations [address] [place] [address] Group Sravan [facility] ([facility]F amily Med Tm B Non-AD BCC) [address] [place] [address] [facility]rav[facility]Sco tt COUNT INCLUDES THE [facility] Team 4) OUTPATIENT [id number] poss infecte d cyst on upper chest VILLALBAYUMIKO EDEN 03/13 Released w/o Limitations [address] [place] [address] Group Sravan S[facility]TON ([facility]S cott COUNT INCLUDES THE [facility] Team 4) [address] [place] [address] Sravan SUTTON ([facility]) OUTPATIENT [id number] TCP - telepho ne program REED MASTERS 02/24 Released w/o Limitations [address] [place] [address] Sravan SUTTON ([facility]) [address] [place] [address] Sravan SUTTON ([facility]) OUTPATIENT [id number] Followu p appoint ment REED MASTERS 04/17 Released w/o Limitations [address] [place] [address] Sravan SUTTON ([facility]I [facility]) [facility] Outpatient Encounter [id number] 05/18 [facility] Outpatient Encounter [id number] 10/28 [facility] En[facility] [id number] 11/19 [facility] En[facility] [id number] 11/30 [facility] OFFICE O/P NEW MOD 45 MIN [id number] Diagnos is: ICD-10- CM Z00.00 Encntr for general adult medical exam w/o abnorma l finding s TEODORA RODRIGUEZ 11/30 [facility] Outpatient Encounter [id number] CAITLYN PAYNE 06/14 [facility] OFFICE O/P EST MOD 30 MIN [id number] Diagnos is: ICD-10- CM M25.561 Pain in right knee TEODORA RODRIGUEZ 06/21 [facility] Outpatient Encounter [id number] 06/23 [facility] OFF/OP EST NOVEMBER X REQ PHY/QHP [id number] Diagnos is: ICD-10- CM G47.33 Obstruc tive sleep apnea (adult) (pediat see) ZAYNAB BRENNAN 08/18 [facility] Procedures Combined list of: 1) Procedures from Department of Veterans Affairs facilities going back up to thelast 18 months, not all [place] non-surgical procedures are included; 2) All procedures from the Department of Defense facilities. Procedure Procedure Type Code Date Perfomer [facility] e Medication Management By Pharmacist Initial 15 Minutes Established Patient Medication Management By Pharmacist Initial 15 Minutes Established Patient [id number] REED MASTERS [facility] Medication Management By Pharmacist Each Additional 15 Minutes Medication Management By Pharmacist Each Additional 15 Minutes [id number] REED MASTERS [facility] Medication Management By Pharmacist Initial 15 Minutes New Patient Medication Management By Pharmacist Initial 15 Minutes New Patient [id number] REED MASTERS [facility] Patient education, not otherwise cla ified, non-physician provider, individual, per se ion 9 WILLIE WADSWORTH Group counseling by cessation coordinator, approx 30 min. [facility] MEDICATION THERAPY MANAGEMENT SERVICE(S) PROVIDED BY A PHARMACIST, INDIVIDUAL, [id number] WITH PATIENT, WITH ASSESSMENT AND INTERVENTION IF PROVIDED; INITIAL 15 MINUTES, ESTABLISHED PATIENT 0 [facility] MEDICATION THERAPY MANAGEMENT SERVICE(S) PROVIDED BY A PHARMACIST, INDIVIDUAL, [id number] WITH PATIENT, WITH ASSESSMENT AND INTERVENTION IF PROVIDED; INITIAL 15 MINUTES, NEW PATIENT 0 [facility] PATIENT EDUCATION, NOT OTHERWISE CLASSIFIED, NON-PHYSICIAN PROVIDER, INDIVIDUAL, PER SESSION 9 [facility] ELECTROCARDIOGRAM, ROUTINE ECG WITH AT LEAST 12 LEADS; WITH INTERPRETATION AND REPORT 3 [facility] EXCISION OF UVULA 7 [facility] Social History Combined list of available smoking, tobacco, and other social history from Department of Defense and Veterans Affairs facilities. Social History Type Response Date Comment Sour e Tobacco smoking status NHIS VA-TOBACCO FORMER USER 12/01/2023 [facility] History of tobacco use VA-TOBACCO QUIT 5 TO < 15 YRS 12/01/2023 [facility] This section is an empty social history section. [facility] Plan of Care List of future care activities from Department of Veterans Affairs facilities. Additional future care activities may be listed in the Assessment and Plan section. Date/Time Care Activity Care Activity Detail Facili ty 10/09/2024 AMBULATORY - REHAB MEDICINE AMBULATORY - REHAB MEDICINE [facility] 12/25/2024 AMBULATORY - MEDICINE AMBULATORY - MEDICI NE [facility]
--- OUTSIDE RECORDS SUMMARY | 2024-09-15 07:36 | XMS_ITS ---
Author Name [facility] Address [address] [place] [address] Care Team Providers Care Economic Analysis Director Name Role Phone TYRELL RODRIGUEZ Primary Care Provider [facility] Insurance Providers: All historical and current Section Date Range: From patient's date of to the date document was created. This section includes the names of all active insurance providers for the patient. Insurance Provider Type of Coverage Plan Name Start of Policy Coverage End of Policy Coverage Group Number Member ID Insurance Provider's Telephone Number Policy Doyle's Name Patient's Relationship to Policy Doyle [place] PREFERRED PROVIDER ORGANIZAT ION (PPO) FEP BASIC FAM May 31, 2011 [id number] [phone] FERRERA,CT [place] PATIENT ANTHE[place] PREFERRED PROVIDER ORGANIZAT ION (PPO) FEP BASIC FAM May 31, 2011 [id number] [phone] WAUSEON,CT LLIAM PATIENT ANTHE[place] F[place] PREFERRED PROVIDER ORGANIZAT ION (PPO) FEP BASIC FAM May 31, 2011 [id number] [phone] FERRERA,CT [place] PATIENT [place] F[place] PREFERRED PROVIDER ORGANIZAT ION (PPO) FEP BASIC FAM May 31, 2011 [id number] [phone] FERRERA,CT LLIAM PATIENT [place] FEP ([id number]) PRESCRIPT ION FEPRX May 31, 2011 [id number] [phone] [place] SURYM PATIENT Selected Encounter This section includes the information on record at [place] for the Encounter. Date/Time Encounter Type Encounter Description Reason Provider Source December 01, 2023 08:30 AM OFFICE O/P NEW MOD 45 MIN PRIMARY CARE/MEDICINE ICD-10-CM Z00.00 Encntr for general adult medical exam w/o abnormal findings AMANDO RODRIGUEZ Cor[place] Encounter Template Text not used by [place] Assessments - Encounter Diagnoses This section includes the primary and secondary diagnoses documented for the Encounter. Date/Time Primary/Secondary Diagnosis Diagnosis Name Provider Source December 01, 2023 09:41 AM PRIMARY Encntr for general adult medical exam w/o abnormal findings AMANDO RODRIGUEZ [facility] December 01, 2023 09:41 AM SECONDARY Contact with and exposure to other hazardous substances AMANDO RODRIGUEZ [facility] December 01, 2023 09:41 AM SECONDARY Essential (primary) hypertension AMANDO RODRIGUEZ [facility] December 01, 2023 09:41 AM SECONDARY Gastro-esophageal reflux disease without esophagitis AMANDO RODRIGUEZ [facility] December 01, 2023 09:41 AM SECONDARY Generalized anxiety disorder AMANDO RODRIGUEZ [facility] December 01, 2023 09:41 AM SECONDARY Hyperlipidemia, unspecified AMANDO RODRIGUEZ [facility] December 01, 2023 09:41 AM SECONDARY Obstructive sleep apnea (adult) (pediatric) [place]NY[place]ANDO [place] [facility] Vital Signs: All taken on the encounter date This section contains inpatient and outpatient Vital Signs collected on the date of the Encounter. Date/Time Temperature Pulse Blood Pressure Respiratory Rate SP02 Pain Height Weight Body Mass Index Source December 01, 2023 08:51 AM 122/88 [facility] December 01, 2023 08:40 AM 98 55 151/92 18 96 0 70 253 36 [facility] Social History: Smoking Status (Most current) and Tobacco Use (All prior to encounter date) This section includes the most current, and the historical, smoking and tobacco- related health factors from the [place] facility where the Encounter took place. Current Smoking Status This section includes the most current smoking, or tobacco-related health factor, from the [place] facility where the Encounter took place. Date/Time Current Smoking Status Comment Facil ity December 01, 2023 08:30 AM VA-TOBACCO FORMER USER [facility] Tobacco Use History This section includes a history of the smoking, or tobacco-related health factors, that were collected on or before the date of the Encounter. The data comes from the [place] facility where the Encounter took place. Date/Time Smoking Status/Tobacco Use Comment F acility December 01, 2023 08:30 AM VA-TOBACCO QUIT 5 TO < 15 YRS [facility] Encounter Notes: All associated encounter notes This section contains the clinical notes associated to the Encounter. Date/Time Encounter Note(s) Provider Source December 01, 2023 09:33 AM ADDENDUM: LOCAL TITLE: Addendum STANDARD TITLE: ADDENDUM DATE OF NOTE: DECEMBER 01, 2023@09:33:04 ENTRY DATE: DECEMBER 01, 2023@09:33:05 AUTHOR: WILMAN RIOS EXP COSIGNER: URGENCY: STATUS: COMPLETED Alerting PCMM to please add pending assignment to PACT 7 / DR. RODRIGUEZ- patient was seen in clinic today, thanks! /calos/ WILMAN RIOS COMPUTER AIDED DESIGN DESIGNER Signed: 12/01/2023 09:33 Receipt Acknowledged By: 12/01/2023 10:19 /calos/ CAMILO PEREIRA PCMM COORDINATOR --- Original Document --- 12/01/23 V15 PACT FACE TO FACE NOTE STL: Provider Visit: Patient Identifiers : Full Name Date of Reason for visit: New Patient Do you have a history of any of the following? (check all that apply): Hypertension, Obesity, Other:acid reflux, sleep apnea,anxiety Surgeries (type(s) and date(s)): Have you been seen by a physician, VA or private, in the last year? Yes Name and contact information for provider: Dr Deshawn Barcenas Have you been hospitalized or seen in an ER in the last year? Yes What hospital(s) or ERs and approximate date(s)? 07/2023 [facility], 09/27/23 [facility] Records request sent: Have you had a colonoscopy previously? Yes What location and approximate date(s)? [facility] Records request sent: Have you had a PAP smear previously? N/A Have you had a Mammogram previously? No Mode of Arrival: Ambulatory Allergy Review: Patient has answered NKA Allergy list reviewed and remains current. Recent Vital Signs: Temperature: 98 F [36.7 C] (12/01/2023 08:40) Pulse: 55 (12/01/2023 08:40) Respiration: 18 (12/01/2023 08:40) B/P: 151/92 (12/01/2023 08:40) Pain: 0 (12/01/2023 08:40) Wt: 253 lb [114.76 kg] (12/01/2023 08:40) Ht: 70 in [177.8 cm] (12/01/2023 08:40) BMI: 36.4 POX: 96% (12/01/2023 08:40) Would you like to discuss any personal problem, family problem, alcohol use, drug use, or a mental or emotional illness? No Contact provided Primary Care phone number and encouraged to call if any questions or concerns. Review that after hours nurse line [phone] and emergency room are available 15/02 for patient use. Contact verbalized good understanding. Suicide Screen: C-SSRS Screening [place]-Suicide Severity Rating Scale (C-SSRS Screener) 1. Over the past month, have you wished you were or wished you could go to sleep and not wake up? No 2. Over the past month, have you had any actual thoughts of killing yourself? No 3. Over the past month, have you been thinking about how you might do this? Response not required due to responses to other questions. 4. Over the past month, have you had these thoughts and had some intention of acting on them? Response not required due to responses to other questions. 5. Over the past month, have you started to work out or worked out the details of how to kill yourself? Response not required due to responses to other questions. 6. If yes, at any time in the past month did you intend to carry out this plan? Response not required due to responses to other questions. 7. In your lifetime, have you ever done anything, started to do anything, or prepared to do anything to end your life (for example, collected pills, obtained a gun, gave away valuables, went to the roof but didn't jump)? No 8. If YES, was this within the past 3 months? Response not required due to responses to other questions. Toxic Exposure Screening: The [place]/caregiver was asked if they believe the experienced any toxic exposure(s), such as Airborne Hazards and Open Burn Pit, [place] War related exposures, Agent Warren, Radiation, contaminated water at [place] or other such exposures, while serving in the Armed Forces. /caregiver believes the was exposed to the following while serving in the Armed Forces: Airborne Hazards and Open Burn Pit: /caregiver was made aware of educational resources that includes information on the Registry Program, presumptive conditions and how to file a claim. Printed information was offered and provided if desired. No questions at this time [place]/caregiver was informed of local points of contact. Contact information for local resources: [facility] Registry Exam Program: [phone] Eligibility: [phone] [id number] Toxic Exposure Screening Follow-Up reminder is needed. Name of person notified: Dr Rodriguez Alcohol Use Screen (AUDIT-C): Alcohol Screen: SCREEN FOR ALCOHOL (AUDIT-C) An alcohol screening test (AUDIT-C) was negative (score=3). 1. How often did you have a drink containing alcohol in the past year? Consider a drink to be a 12 ounce can or bottle of regular beer, 8 ounces of malt liquor, a 5 ounce glass of table wine, or a 1.5 ounce shot of liquor (like scotch, gin, or vodka). Two to three times per week 2. How many drinks containing alcohol did you have on a typical day when you were drinking in the past year? One or two drinks 3. How often did you have six or more drinks on one occasion in the past year? Never Depression Screening: Perform PHQ-2 A PHQ-2 screen was performed. The score was 0 which is a negative screen for depression. Over the past two weeks, how often have you been bothered by the following problems? 1. Little interest or pleasure in doing things Not at all 2. Feeling down, depressed, or hopeless Not at all Homelessness/Food Insecurity Screen: In the past 2 months, have you been living in stable housing that you own, rent, or stay in as part of a household? Yes - Living in stable housing. Are you worried or concerned that in the next 2 months you may NOT have stable housing that you own, rent, or stay in as part of a household? No - Not worried about housing near future The [place] reports the following: Within the past 12 months, you worried whether your food would run out before you got money to buy more. Never true Within the past 12 months, the food you bought just didn't last and you didn't have money to get more. Never true Influenza Immunization: The patient declines to receive the recommended dose of seasonal influenza vaccine. Immunization: INFLUENZA, UNSPECIFIED FORMULATION Refusal Reason: PATIENT DECISION Patient refuses all immunization(s) in the FLU group Date Documented: 12/01/23 08:46 PTSD Screening: PC-PTSD-5 A PTSD screening test (PC-PTSD-5) was negative (score=0). IN THE PAST MONTH, have you ever had any experience that was so frightening, horrible or traumatic. For example: A serious accident or fire a physical or sexual assault or abuse An earthquake or flood A war Seeing someone be killed or seriously injured Having a loved one through homicide or suicide 1. Have you ever experienced this kind of event? YES 2. Had nightmares about the event(s) or thought about the event(s) when you did not want to? NO 3. Tried hard not to think about the event(s) or went out of your way to avoid situations that reminded you of the event(s)? NO 4. Been constantly on guard, watchful, or easily startled? NO 5. Holden numb or detached from people, activities, or your surroundings? NO 6. Holden guilty or unable to stop blaming yourself or others for the event(s) or any problems the event(s) may have caused? NO Learning Assessment: - * This patient's learning ABILITIES, BARRIERS to learning, CULTURAL and YARSANI beliefs, and learning PREFERENCES were assessed. Following are findings of note: Patient reads well. Comment: with glasses LANGUAGE Patient reports that German is preferred language for healthcare. Patient reports learning preference is to refer to handouts. [facility] Offer: * Veterans interested in enrolling in the program can do so without a referral. Encourage Veterans to please call to schedule an appointment. Dipti Fall Risk Opt Assessment STL: Nursing Fall Risk Outpatient Assessment Patient had a fall within the past 12 months. Circumstances of fall: 07/2023 slipped on ice Tobacco Use Screening: The patient is a former tobacco user. The patient quit five to less than fifteen years ago. /calos/ SIVA PAYNE LPN LICENSED PRACTIAL NURSE Signed: 12/01/2023 08:51 WILMAN RIOS [facility] December 01, 2023 08:53 AM PRIMARY CARE INITI AL EVALUATION NOTE: LOCAL TITLE: PRIMARY CARE PROVIDER NEW VISIT ST STANDARD TITLE: PRIMARY CARE INITIAL EVALUATION NOTE DATE OF NOTE: DECEMBER 01, 2023@08:53 ENTRY DATE: DECEMBER 01, 2023@08:53:09 AUTHOR: TYRELL RODRIGUEZ EXP COSIGNER: URGENCY: STATUS: COMPLETED NEW PATIENT: REASON FOR VISIT/CHIEF COMPLAINT: 48yo male here for new patient visit to est care with the VA. Non VA Provider: Govind Workman, [place] HPI: Here to establish care with the VA, plans to keep his outside PCP provider as well. Reports his last visit with his PCP was about a month ago and he had labs done at that time. No concerns at this time. Does wish to have his medications filled at the VA. WHAT IS YOUR GOAL FOR TODAY? SOURCE(S) OF HISTORY: Patient PAST MEDICAL HISTORY: HTN HLD GERD NORA Anxiety CHILDHOOD ILLNESS: none SURGERIES: ORIF left radius/ulna Jul 2023 due to fracture; then had repeat surgery due to malunion September 2023 --4 inguinal hernia surgeries, 2 left and 2 right, last one over 10 years ago --Ganglion cyst removal from R hand 2018 --Left femur fracture at 2 years old with ORIF INJURIES: Left femur frx at 2 years old Left radius/ulna frx Jul 2023 FAMILY HISTORY: DM2: Father, Mother, [employer] Denies family hx of colon ca or other cancers SOCIAL HISTORY: HABITS: NICOTINE: Nicotine User: smoked cigarettes from age [age], then quit ILLICIT DRUGS: none ETOH: 2 beers twice a week on avg EXERCISE: none since breaking arm in Jul, plans to restart MARITAL/DOMESTIC STATUS: ; 1 kid at home, 2 older girls out of the house SCREEN FOR PHYSICAL/PSYCHOLOGICAL/SEXU AL ABUSE: OCCUPATION: [employer], program management EDUCATION: bachelor's degree HISTORY: Period of Service: POW Status Indicated? 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 MEDICATION RECONCILIATION: Active and Recently Outpatient Medications (excluding Supplies): Lansoprazole 15mg once daily citalopram 20mg losartan/hctz 100/25mg once daily atorvastatin 10mg daily fenofibrate 67mg daily Coq10 200mg daily Potassium 20 meq I have reviewed the patient's medication list with the patient and/or his/her care-body mechanic apprentice. Handwritten corrections, additions and/or deletions were made to the list. Corrected Outpatient Medication List was provided to the patient/caregiver. REVIEW OF SYSTEMS: Neg other than as stated in HPI PHYSICAL EXAMINATION: VITALS (most recent, as listed in the electronic record): Temperature: 98 F [36.7 C] (12/01/2023 08:40) BP: 122/88 (12/01/2023 08:51) Pulse: 55 (12/01/2023 08:40) Resp: 18 (12/01/2023 08:40) PulsOx: 96% (12/01/2023 08:40) Pain: 0 (12/01/2023 08:40) Weight: Measurement DT WEIGHT LB(KG)[BMI] 12/01/2023 08:40 253(114.76)[36*] Gen: NAD EYE: PERRLA Cardiovascular: RRR, no murmurs, no edema Respiratory: Lungs CTAB Abd/GI: Abdomen non-distended Extremities: adequate ROM, no edema Hemo/lymph: no adenopathy, excessive bruising Endo: Thyroid without palpable nodules, no excess hair growth Psych: mood and affect appropriate Neuro: Alert and oriented, CN2-12 grossly intact Skin: Clear and intact ASSESSMENT/PLAN: Here to establish care with the VA. Plans to have him medications filled here, but also continue to see his nonVA PCP for care. Reports labs done about 1 month ago with PCP. 1) HTN: Hx of hypertension, on losartan/hctz. Reports BP's 125/85 at home and repeat here in clinic was good. --Will order medication to be filled here at the [facility]. --Continue to monitor BP at home. --Recommend 150min/week of moderate exercise, along with 2-3 days of strength training. Recommend diet of several veggies/fruits, whole grains, and lean protein. Recommend avoidance of sugary beverages and heavily processed foods. 2) HDL: on atorvastatin 10mg and fenofibrate. Reports recently had labs done by outside PCP and reports lipids are good. --Will order atorvastatin and fenofibrate. Discussed closest dose we have to what he is getting currently is 72.5mg and he is ok with this. 3) GERD: currently on lansoprazole and reports it works well. Discussed that this medication is not on our formulary and he can try omeprazole or pantoprazole. --He is ok with switching to omeprazole. Medication ordered and he should call if it is not adequately controlling GERD sx. 4) Anxiety: on citalopram 20mg and reports this medication is working well. --Medication ordered for continued use. 5) NORA: on CPAP, reports last sleep study a few years ago. Reports machine is working well. Given number for sleep supplies clinic to call as needed. 6) Tinnitus/[facility] [place]: given number for Audiology to call for visit as needed. Colonoscopy: Dr. Dubois, [facility] in 2018. Normal, advised 10 year f/u. RETURN TO CLINIC: SUMMARY STATEMENT: Plan of care has been discussed with including expected therapeutic benefits and potential side effects of prescribed medication and treatments. verbalizes understanding and is in agreement with the plan of care. Patient was instructed to keep all scheduled appointments and contact tongue lining stitcher for any additional problems. PREVENTION & SCREENING: ALCOHOL: Clinical Reminder not due now or within a month BLOOD PRESSURE: Clinical Reminder not due now or within a month HEMOGLOBIN A1C: Clinical Reminder not due now or within a month Sexual Orientation: The patient thinks of their sexual orientation as: Straight or Heterosexual Toxic Exposure Screening Follow-Up: Exposure Concern(s): 12/01/2023 Airborne Hazards/Open Burn [place] - Toxic Exposure Concern Follow-up Question(s): 12/01/2023 No Questions - Toxic Exposure Concern [place] declines further assistance at this time. Screen for Embedded Fragments: SCREEN FOR EMBEDDED FRAGMENTS The patient reports no embedded fragments. Medication Reconciliation Opt STL: I have reviewed the patient's medication list (including active outpatient prescriptions dispensed from this [place] (local) and dispensed from another [place] or DoD facility (remote) as well as inpatient orders (local pending and active), local clinic medications, locally documented non-VA medications, and local prescriptions that have or been discontinued in the past 90 days.) with the patient and/or his/her care-body mechanic apprentice. Handwritten corrections, additions and/or deletions were made to the list, as appropriate. Corrected Outpatient Medication List was provided to the patient/caregiver. Avg Risk Colorectal Cancer Screen: AVERAGE RISK colorectal cancer screening is due based on information available to this clinical reminder Prior/outside colonoscopy results: Normal, advised to repeat in 10 years Date: February 10, 2018 Colonoscopy reminder set 4 years from DECEMBER 01, 2023. /calos/ TYRELL RODRIGUEZ Staff Physician Signed: 12/01/2023 09:41 T[facility]Z [facility] December 01, 2023 08:41 AM NURSING NOTE: LOCAL TITLE: V15 PACT FACE TO FACE NOTE STL STANDARD TITLE: NURSING NOTE DATE OF NOTE: DECEMBER 01, 2023@08:41 ENTRY DATE: DECEMBER 01, 2023@08:41:49 AUTHOR: SIVA PAYNE COSIGNER: URGENCY: STATUS: COMPLETED V15 PACT FACE TO FACE NOTE STL Has ADDENDA Provider Visit: Patient Identifiers : Full Name Date of Reason for visit: New Patient Do you have a history of any of the following? (check all that apply): Hypertension, Obesity, Other:acid reflux, sleep apnea,anxiety Surgeries (type(s) and date(s)): Have you been seen by a physician, VA or private, in the last year? Yes Name and contact information for provider: Dr Deshawn Barcenas Have you been hospitalized or seen in an ER in the last year? Yes What hospital(s) or ERs and approximate date(s)? 07/2023 [facility], 09/27/23 [facility] Records request sent: Have you had a colonoscopy previously? Yes What location and approximate date(s)? [facility] Records request sent: Have you had a PAP smear previously? N/A Have you had a Mammogram previously? No Mode of Arrival: Ambulatory Allergy Review: Patient has answered NKA Allergy list reviewed and remains current. Recent Vital Signs: Temperature: 98 F [36.7 C] (12/01/2023 08:40) Pulse: 55 (12/01/2023 08:40) Respiration: 18 (12/01/2023 08:40) B/P: 151/92 (12/01/2023 08:40) Pain: 0 (12/01/2023 08:40) Wt: 253 lb [114.76 kg] (12/01/2023 08:40) Ht: 70 in [177.8 cm] (12/01/2023 08:40) BMI: 36.4 POX: 96% (12/01/2023 08:40) Would you like to discuss any personal problem, family problem, alcohol use, drug use, or a mental or emotional illness? No Contact provided Primary Care phone number and encouraged to call if any questions or concerns. Review that after hours nurse line [phone] and emergency room are available 15/02 for patient use. Contact verbalized good understanding. Suicide Screen: C-SSRS Screening [place]-Suicide Severity Rating Scale (C-SSRS Screener) 1. Over the past month, have you wished you were or wished you could go to sleep and not wake up? No 2. Over the past month, have you had any actual thoughts of killing yourself? No 3. Over the past month, have you been thinking about how you might do this? Response not required due to responses to other questions. 4. Over the past month, have you had these thoughts and had some intention of acting on them? Response not required due to responses to other questions. 5. Over the past month, have you started to work out or worked out the details of how to kill yourself? Response not required due to responses to other questions. 6. If yes, at any time in the past month did you intend to carry out this plan? Response not required due to responses to other questions. 7. In your lifetime, have you ever done anything, started to do anything, or prepared to do anything to end your life (for example, collected pills, obtained a gun, gave away valuables, went to the roof but didn't jump)? No 8. If YES, was this within the past 3 months? Response not required due to responses to other questions. Toxic Exposure Screening: The [place]/caregiver was asked if they believe the experienced any toxic exposure(s), such as Airborne Hazards and Open Burn [place], [place] War related exposures, Agent Warren, Radiation, contaminated water at [place] or other such exposures, while serving in the [employer]. [place]/caregiver believes the was exposed to the following while serving in the Armed Forces: Airborne Hazards and Open Burn Pit: [place]/caregiver was made aware of educational resources that includes information on the Registry Program, presumptive conditions and how to file a claim. Printed information was offered and provided if desired. No questions at this time /caregiver was informed of local points of contact. Contact information for local resources: [facility] Registry Exam Program: [phone] Eligibility: [phone] [id number] Toxic Exposure Screening Follow-Up reminder is needed. Name of person notified: Dr Rodriguez Alcohol Use Screen (AUDIT-C): Alcohol Screen: SCREEN FOR ALCOHOL (AUDIT-C) An alcohol screening test (AUDIT-C) was negative (score=3). 1. How often did you have a drink containing alcohol in the past year? Consider a drink to be a 12 ounce can or bottle of regular beer, 8 ounces of malt liquor, a 5 ounce glass of table wine, or a 1.5 ounce shot of liquor (like scotch, gin, or vodka). Two to three times per week 2. How many drinks containing alcohol did you have on a typical day when you were drinking in the past year? One or two drinks 3. How often did you have six or more drinks on one occasion in the past year? Never Depression Screening: Perform PHQ-2 A PHQ-2 screen was performed. The score was 0 which is a negative screen for depression. Over the past two weeks, how often have you been bothered by the following problems? 1. Little interest or pleasure in doing things Not at all 2. Feeling down, depressed, or hopeless Not at all Homelessness/Food Insecurity Screen: In the past 2 months, have you been living in stable housing that you own, rent, or stay in as part of a household? Yes - Living in stable housing. Are you worried or concerned that in the next 2 months you may NOT have stable housing that you own, rent, or stay in as part of a household? No - Not worried about housing near future The reports the following: Within the past 12 months, you worried whether your food would run out before you got money to buy more. Never true Within the past 12 months, the food you bought just didn't last and you didn't have money to get more. Never true Influenza Immunization: The patient declines to receive the recommended dose of seasonal influenza vaccine. Immunization: INFLUENZA, UNSPECIFIED FORMULATION Refusal Reason: PATIENT DECISION Patient refuses all immunization(s) in the FLU group Date Documented: 12/01/23 08:46 PTSD Screening: PC-PTSD-5 A PTSD screening test (PC-PTSD-5) was negative (score=0). IN THE PAST MONTH, have you ever had any experience that was so frightening, horrible or traumatic. For example: A serious accident or fire a physical or sexual assault or abuse An earthquake or flood A war Seeing someone be killed or seriously injured Having a loved one through homicide or suicide 1. Have you ever experienced this kind of event? YES 2. Had nightmares about the event(s) or thought about the event(s) when you did not want to? NO 3. Tried hard not to think about the event(s) or went out of your way to avoid situations that reminded you of the event(s)? NO 4. Been constantly on guard, watchful, or easily startled? NO 5. Holden numb or detached from people, activities, or your surroundings? NO 6. Holden guilty or unable to stop blaming yourself or others for the event(s) or any problems the event(s) may have caused? NO Learning Assessment: - * This patient's learning ABILITIES, BARRIERS to learning, CULTURAL and YARSANI beliefs, and learning PREFERENCES were assessed. Following are findings of note: Patient reads well. Comment: with glasses LANGUAGE Patient reports that German is preferred language for healthcare. Patient reports learning preference is to refer to handouts. [facility] Program Offer: * Veterans interested in enrolling in the program can do so without a referral. Encourage Veterans to please call to schedule an appointment. Dipti Fall Risk Opt Assessment STL: Nursing Fall Risk Outpatient Assessment Patient had a fall within the past 12 months. Circumstances of fall: 07/2023 slipped on ice Tobacco Use Screening: The patient is a former tobacco user. The patient quit five to less than fifteen years ago. /calos/ SIVA PAYNE LPN LICENSED PRACTIAL NURSE Signed: 12/01/2023 08:51 12/01/2023 ADDENDUM STATUS: COMPLETED Alerting PCMM to please add pending assignment to PACT 7 / DR. RODRIGUEZ- patient was seen in clinic today, thanks! /calos/ WILMAN RIOS COMPUTER AIDED DESIGN DESIGNER Signed: 12/01/2023 09:33 Receipt Acknowledged By: * AWAITING SIGNATURE * CAMILO PEREIRA KIMBERLY [facility]
--- OUTSIDE RECORDS SUMMARY | 2024-09-15 07:36 | XMS_ITS | Encounter Summary ---
Author Name [facility] [place] [facility] Address [address] [place] [address] Care Team Providers Care Internet Researcher Name Role Phone TYRELL RODRIGUEZ Primary Care Provider [facility] Insurance Providers: All historical and current [...] FEP BASIC FAM May 31, 2011 [id number] [phone] [place] PATIENT AN[place] FEP PREFERRED PROVIDER ORGANIZAT ION (PPO) FEP BASIC FAM May 31, 2011 112 [id number] [phone] [place] PATIENT [place] FEP PREFERRED PROVIDER ORGANIZAT ION (PPO) FEP BASIC FAM May 31, 2011 112 [id number] [phone] [place] PATIENT [place] FEP PREFERRED PROVIDER ORGANIZAT ION (PPO) FEP BASIC FAM May 31, 2011 112 [id number] [phone] [place] PATIENT [place] FEP ([id number]) PRESCRIPT ION FEPRX May 31, 2011 [id number] [phone] [place] SUR[place] PATIENT Selected Encounter This section includes the information on record at [place] for the Encounter. Date/Time Encounter Type Encounter Description Reason Provider Source Jun 21, 2024 10:30 AM OFFICE O/P EST MOD 30 MIN PRIMARY CARE/MEDICINE ICD-10-CM M25.561 Pain in right knee TYRELL RODRIGUEZ [place] Encounter Template Text not used by [place] Assessments - Encounter Diagnoses This section includes the primary and secondary diagnoses documented for the Encounter. Date/Time Primary/Secondary Diagnosis Diagnosis Name Provider Source Jul 03, 2024 06:58 AM PRIMARY Pain in right [facility] Jul 03, 2024 06:58 AM SECONDARY Essential (primary) hypertension [facility] Corrine [facility] Jul 03, 2024 06:58 AM SECONDARY Gastro-esophageal reflux disease without esophagitis [facility] Jul 03, 2024 06:58 AM SECONDARY Generalized anxiety disorder [facility] Jul 03, 2024 06:58 AM SECONDARY Hyperlipidemia, unspecified [facility] Jul 03, 2024 06:58 AM SECONDARY Obstructive sleep apnea (adult) (pediatric) [facility] Plan of Treatment: Future Appointments (+ 6 months) and Future Tests (+/- 45 days) The Plan of Treatment section includes future care activities for the patient from all [place] treatmentfacilities. This section includes future appointments and future orders which are active, pending or scheduled. Future Appointments This section includes appointments that were scheduled to occur 6 months from the date of the Encounter, up to a maximum of 20 appointments. The data comes from all [place] treatment facilities. Appointment Date/Time Appointment Type Appointme nt Facility Name Oct 09, 2024 11:00 AM AMBULATORY - REHAB MEDICIN E [facility] Active, Pending, and Scheduled Orders This section includes a listing of several types of active, pending, and scheduled orders, including clinic medications orders, diagnostic test orders, procedure orders and consult orders; where the start date of the order is 45 days before the date of the Encounter or 45 days after the date of theEncounter. The data comes from all [place] treatment facilities. Test Date/Time Test Type Test Details Facility Name Jun 21, 2024 11:15 AM Consult Order PT OUTPT S T [facility] Cons Learning And Development Analyst's Choice [facility] Vital Signs: All taken on the encounter date This section contains inpatient and outpatient Vital Signs collected on the date of the Encounter. Date/Time Temperature Pulse Blood Pressure Respiratory Rate SP02 Pain Height Weight Body Mass Index Source Jun 21, 2024 10:24 AM 98 55 134/84 18 98 5 70 251.8 36 [facility] Social History: Smoking Status (Most current) and Tobacco Use (All prior to encounter date) This section includes the most current, and the historical, smoking and tobacco- related health factors from the [place] facility where the Encounter took place. Current Smoking Status This section includes the most current smoking, or tobacco-related health factor, from the [place] facility where the Encounter took place. Date/Time Current Smoking Status Comment Facil ity December 01, 2023 08:30 AM VA-TOBACCO FORMER USER [facility] Tobacco Use History This section includes a history of the smoking, or tobacco-related health factors, that were collected on or before the date of the Encounter. The data comes from the [place] facility where the Encounter took place. Date/Time Smoking Status/Tobacco Use Comment F acility December 01, 2023 08:30 AM [place]-TOBACCO QUIT 5 TO < 15 YRS [facility] Encounter Notes: All associated encounter notes This section contains the clinical notes associated to the Encounter. Date/Time Encounter Note(s) Provider Source Jun 21, 2024 10:42 AM PRIMARY CARE NOTE: LOCAL TITLE: PRIMARY CARE PROVIDER ESTABLISHED VISIT [facility] STANDARD TITLE: PRIMARY CARE NOTE DATE OF NOTE: JUN 21, 2024@10:42 ENTRY DATE: JUN 21, 2024@10:42:17 AUTHOR: TYRELL RODRIGUEZ COSIGNER: URGENCY: STATUS: COMPLETED ESTABLISHED PATIENT [id number]: REASON FOR VISIT/CHIEF COMPLAINT: 49yo male here for f/u visit, last visit November 2023 for new patient visit. Non VA Provider: Dr. Membreno [facility], [place] HPI: Reports he has been having right knee pain and intermittent swelling for the last few months. 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 --no known injury recently, but reports hx of meniscus tear about 10 years s/p surgery. --he has been using motrin and icing. WHAT IS YOUR GOAL FOR TODAY? SOURCE(S) OF HISTORY: Patient PAST MEDICAL HISTORY: 1) Exposure to potentially hazardous substance 2) Essential hypertension 3) Hyperlipidemia 4) Gastroesophageal reflux disease 5) Generalized anxiety disorder 6) Sleep apnea FAMILY HISTORY: Reviewed and unchanged. SOCIAL HISTORY: NICOTINE: Nicotine User: smoked cigarettes from age [age], then quit ILLICIT DRUGS: none ETOH: 2 beers twice a week on avg EXERCISE: coaching soccer, referees, walking MARITAL/DOMESTIC STATUS: ; 1 kid at home, 2 older girls out of the house ALLERGIES: Patient has answered NKA ALLERGY REVIEW: Allergy list reviewed and remains current. MEDICATIONS: Active and Recently Outpatient Medications (excluding Supplies): Active Outpatient Medications Status 1) ATORVASTATIN CALCIUM 20MG TAB TAKE ONE-HALF TABLET BY ACTIVE MOUTH EVERY EVENING FOR HIGH CHOLESTEROL 2) CITALOPRAM HYDROBROMIDE 40MG TAB TAKE ONE-HALF TABLET ACTIVE BY MOUTH EVERY MORNING FOR ANXIETY 3) FENOFIBRATE 145MG TAB TAKE ONE-HALF TABLET BY MOUTH ACTIVE ONCE A DAY FOR HIGH TRIGLYCERIDES - TAKE WITH FOOD 4) HCTZ 25MG/LOSARTAN 100MG TAB TAKE 1 TABLET BY MOUTH ACTIVE EVERY MORNING FOR HIGH BLOOD PRESSURE 5) OMEPRAZOLE 20MG EC CAP TAKE ONE CAPSULE BY MOUTH ACTIVE EVERY MORNING BEFORE A MEAL FOR GASTROESOPHAGEAL REFLUX DISEASE TAKE 30 MINUTES PRIOR TO FOOD. 6) POTASSIUM CL 20MEQ SA TAB (DISPERSIBLE) TAKE ONE ACTIVE TABLET BY MOUTH ONCE A DAY FOR POTASSIUM SUPPLEMENTATION TAKE WITH FOOD MEDICATION RECONCILIATION: I have reviewed the patient's medication list with the patient and/or his/her care-solderer assembler. Handwritten corrections, additions and/or deletions were made to the list. Corrected Outpatient Medication List was provided to the patient/caregiver. REVIEW OF SYSTEMS: Neg other than as noted in HPI PHYSICAL EXAMINATION: VITALS (most recent, as listed in the electronic record): Temperature: 98 F [36.7 C] (06/21/2024 10:24) BP: 134/84 (06/21/2024 10:24) Pulse: 55 (06/21/2024 10:24) Resp: 18 (06/21/2024 10:24) PulsOx: 98% (06/21/2024 10:24) Pain: 5 (06/21/2024 10:24) Weight: Measurement DT WEIGHT LB(KG)[BMI] 06/21/2024 10:24 251.8(114.21)[36*] 12/01/2023 08:40 253(114.76)[36*] Gen: NAD EYE: PERRLA Cardiovascular: RRR, no murmurs, no edema Respiratory: Lungs CTAB Abd/GI: Abdomen non-distended Extremities: adequate ROM, no edema R KNEE: no edema, erythema, warmth. --mild TTP at the medial patella --normal ROM with patellar crepitus present --5/5 ext/flexion Psych: mood and affect appropriate Neuro: Alert and oriented, CN2-12 grossly intact Skin: Clear and intact DATA REVIEW: No HEMOGLOBIN A1C EO data found Lipid Panel: No LIPID PANEL EO data found CMP: No COMPREHENSIVE METABOLIC PANEL EO data found CBC: No CBC EO data found No PSA (LAST 10 5Y) EO data found TSH: No TSH (1YR) EO data found No VITAMIN D EO data found INR: No INR EO data found UA: No URINALYSIS EO data found IM - IMMUNIZATIONS ADMINISTERED Immunization Series Date Facility Reaction Info COVID-19 (PFIZER), MRNA, LNP-S, * 2 06/04/2021 [facility] COVID-19 ([employer]), MRNA, LNP-S, * 1 05/13/2021 [facility] TDAP 1 02/01/2020 [facility] ZOSTER RECOMBINANT 2 10/29/2023 [facility] ZOSTER RECOMBINANT 1 05/18/2023 [facility] CONTRAINDICATED No data available REFUSED ======= Immunization Date Facility Info COVID-19 ([employer]), MRNA, LNP-S, * 06/21/2024 [facility] <I> INFLUENZA, UNSPECIFIED FORMULATI* 06/21/2024 [facility] <I> INFLUENZA, UNSPECIFIED FORMULATI* 12/01/2023 [facility] <I> ASSESSMENT/PLAN: 1) Right knee pain: for the last few months w/o injury --pain medial patellar and crepitus on exam concerning for PFS, may have chondromalacia. --xrays ordered for further eval. --discussed PT and he is agreed, consult placed. --f/u if no improvement 2) HTN: BP mildly above goal, goal BP <130/80. --continues to use losartan/hctz daily. --recommend to continue to monitor BP at home. --Recommend 150min/week of moderate exercise, along with 2-3 days of strength training. Recommend diet of several veggies/fruits, whole grains, and lean protein. Recommend avoidance of sugary beverages and heavily processed foods. 3) HLD: labs done via nonVA PCP. Advised having next set of labs sent to our clinic for review. --continue atorvastatin 10mg and fenofibrate 72.5mg --lifestyle recs as above. 4) NORA: using cpap nightly. --given sleep supplies number to call for supplies. 5) Anxiety: on citalopram 20mg daily w/o issues. --cont current medication. 6) GERD: continue omeprazole daily RETURN TO CLINIC: 6 months SUMMARY STATEMENT: Plan of care has been discussed with including expected therapeutic benefits and potential side effects of prescribed medication and treatments. [place] verbalizes understanding and is in agreement with the plan of care. Patient was instructed to keep all scheduled appointments and contact shopper marketing manager for any additional problems. PREVENTION & SCREENING: ALCOHOL: Clinical Reminder not due now or within a month COLORECTAL CANCER: Colonoscopy: Dr. Dubois, [facility] in 2018. Normal, advised 10 year f/u. BLOOD PRESSURE: Clinical Reminder not due now or within a month HEMOGLOBIN A1C: Clinical Reminder not due now or within a month MST Screening - V: Patient denies experiencing sexual trauma (MST). /calos/ TYRELL RODRIGUEZ Staff Physician Signed: 06/21/2024 11:15 TYRELL RODRIGUEZ [facility] Jun 21, 2024 10:29 AM NURSING NOTE: LOCAL TITLE: V15 PACT FACE TO FACE NOTE [facility] STANDARD TITLE: NURSING NOTE DATE OF NOTE: JUN 21, 2024@10:29 ENTRY DATE: JUN 21, 2024@10:29:10 AUTHOR: SIVA PAYNE COSIGNER: URGENCY: STATUS: COMPLETED Provider Visit: Patient Identifiers : Full Name Date of Reason for visit: Established Follow-Up Mode of Arrival: Ambulatory Allergy Review: Patient has answered NKA Allergy list reviewed and remains current. Recent Vital Signs: Temperature: 98 F [36.7 C] (06/21/2024 10:24) Pulse: 55 (06/21/2024 10:24) Respiration: 18 (06/21/2024 10:24) B/P: 134/84 (06/21/2024 10:24) Pain: 5 (06/21/2024 10:24) Wt: 251.8 lb [114.21 kg] (06/21/2024 10:24) Ht: 70 in [177.8 cm] (06/21/2024 10:24) BMI: 36.2 POX: 98% (06/21/2024 10:24) Would you like to discuss any personal problem, family problem, alcohol use, drug use, or a mental or emotional illness? No Contact provided Primary Care phone number and encouraged to call if any questions or concerns. Review that after hours nurse line [phone] and emergency room are available 15/02 for patient use. Contact verbalized good understanding. COVID-19 Immunization - L,N,P,PH,U: Refused Pfizer Monovalent COVID-19 vaccine Immunization: COVID-19 (PFIZER), MRNA, LNP-S, PF, RENÉ-SUCROSE, 30 MCG/0.3 ML (AGES 12+ YEARS) Refusal Reason: PATIENT DECISION Patient refuses all immunization(s) in the COVID-19 group Date Documented: 06/21/24 10:32 Influenza Immunization - L,N,P,PH,U: Deferral / Refusal The patient declines to receive the recommended dose of seasonal influenza vaccine. Immunization: INFLUENZA, UNSPECIFIED FORMULATION Refusal Reason: PATIENT DECISION Patient refuses all immunization(s) in the FLU group Date Documented: 06/21/24 10:32 /calos/ SIVA PAYNE LPN LICENSED PRACTIAL NURSE Signed: 06/21/2024 10:33 [facility]
== END 2024-09-15 07:30 | disposition home or self-care (01) ==
LOC: CHSIMG 07:31
PROVIDERS: PCP Internal Medicine; Visit Provider Internal Medicine
DX: R74.01 Elevation of levels of liver transaminase levels (principal); K76.0 Fatty (change of) liver, not elsewhere classified
CPT/HCPCS: 76705